=== PATIENT | male | born 1965 | race Caucasian/White ===

== ENCOUNTER 2016-07-28 11:28 | Emergency (ER) | payer OTHER ==
[~2016-07-28] VITALS: Ht 193 cm; Wt 126.7 kg
[2016-07-28] MEDS ORDERED: LISINOPRIL10 MG PO ×2 (13:49→13:55)
[2016-07-28 14:28] VITALS: BP 144/99
== END 2016-07-28 14:29 | disposition home or self-care (01) ==
LOC: EME 11:28
DX: I10 Essential (primary) hypertension (principal); F41.9 Anxiety disorder, unspecified
CPT/HCPCS: 99281; 99284